=== PATIENT | female | born 1960 | race American Indian/Alaskan Native ===

== ENCOUNTER 2017-01-30 20:26 | Emergency (ER) | payer OTHER ==
--- NOTE | 2017-01-30 21:55 | C.PDOC ---
History Of Present Illness 56 year old female presents to the ED with complaints of intermittent left hip pain for three days. Patient is status post left hip replacement from 2015 and takes naproxen for the pain with some relief but grew concerned and is seeking evaluation. She denies any trauma, recent fall, fever, redness or swelling to the area. Time Seen by Provider: 01/30/17 21:00 Chief Complaint (Nursing): Hip Pain History Per: Patient History/Exam Limitations: no limitations Onset/Duration Of Symptoms: Days (3 days ), Intermittent Episodes Current Symptoms Are (Timing): Still Present Recent travel outside of the [place]: No - Hip Description Of Injury: Other (status post left hip replacement in 2014, no injury occured.). denies: Fell, Tripped, Lost Balance, Fainted, Struck With Object, MVC Past Medical History Reviewed: Historical Data, Nursing Documentation, Vital Signs Vital Signs: Last Vital Signs Temp 97.7 F 01/30/17 22:02 Pulse 62 01/30/17 22:02 Resp 20 01/30/17 22:02 BP 121/80 01/30/17 22:02 Pulse Ox 100 01/30/17 23:41 - Medical History PMH: Anxiety, Arthritis, Depression, HTN, TIA (2014) Family History: States: Unknown Family Hx - Social History Hx Tobacco Use: No Hx Alcohol Use: No Hx Substance Use: No Review Of Systems Constitutional: Negative for: Fever Musculoskeletal: Positive for: Other (left hip pain ) Neurological: Negative for: Weakness, Numbness Physical Exam - Physical Exam Appears: Non-toxic, No Acute Distress Skin: Warm, Dry Head: Atraumatic Eye(s): bilateral: Normal Inspection, PERRL Neck: Supple Back: Normal Inspection, No CVA Tenderness, No Vertebral Tenderness Extremity: Normal ROM (full ROM of both LE), No Tenderness, No Pedal Edema, No Calf Tenderness, Capillary Refill (< 2 sec), No Deformity, No Swelling Extremity: Bilateral: Atraumatic, Normal Color And Temperature Pulses: Left Dorsalis Pedis: Normal, Right Dorsalis Pedis: Normal Neurological/Psych: Oriented x3, Normal Sensation, Normal Reflexes Gait: Steady (patient is fully ambulatory) ED Course And Treatment O2 Sat by Pulse Oximetry: 100 (room air ) - Other Rad Left Hip X-Ray X-Ray: Interpreted by Me, Viewed By Me Interpretation: Hardware in place, no abnormalities, and no acute findings. Progress Note: Pt is fully ambulatory with normal assessment - will d/c home and advised to continue naproxen and PMD follow up Disposition - Disposition Referrals: Non [facility] Provider, [Primary Care Provider] - Disposition: HOME/ ROUTINE Disposition Time: 21:53 Condition: STABLE Additional Instructions: Please follow up with PMD Continue naproxen Return to ER if worse Instructions: Arthralgia (ED) - Clinical Impression Clinical Impression: Hip pain - Scribe Statement The provider has reviewed the documentation as recorded by the Scribe Rosalba Jimenez All medical record entries made by the Junibdagoberto were at my direction and personally dictated by me. I have reviewed the chart and agree that the record accurately reflects my personal performance of the history, physical exam, medical decision making, and the department course for this patient. I have also personally directed, reviewed, and agree with the discharge instructions and disposition.
[2017-01-30 22:03] VITALS: BP 121/80; PULSE 62; RESP 20; TEMP 97.7
[2017-01-30 23:37] VITALS: O2SAT 100
--- NOTE | 2017-01-31 14:34 | RAD ---
PROCEDURE: Left Hip X-ray Radiographs. HISTORY: pain, h/o of hip replacement COMPARISON: None. FINDINGS: BONES: No acute fracture. Status post bilateral hip arthroplasty. No evidence of prosthesis loosening. 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 SOFT TISSUES: Normal. OTHER FINDINGS: None. IMPRESSION: No acute fracture.
== END 2017-01-30 22:02 | disposition home or self-care (01) ==
LOC: C.ER 20:26 → SUPCPDRO 20:26 → C.ER 22:02
DX: M25.552 Pain in left hip (principal); Z96.642 Presence of left artificial hip joint